=== PATIENT | female | born 1990 | race American Indian/Alaskan Native ===

== ENCOUNTER 2019-01-02 06:42 | Outpatient (CLI) | payer MEDICAID ==
[2019-01-02] MEDS ORDERED: LACTATED RINGERS 500 ML IV ONE (07:12)
[2019-01-02 10:22] VITALS: BP 124/65
[2019-01-02 11:13] LABS: Bacteria,Urine 2+ /HPF (Negative); Bilirubin,Urine NEG (Negative); Blood,Urine NEG (Negative); Color,Urine Yellow (Yellow); Mucus,Urine 2+ /HPF; Protein,Urine <15 mg/dL mg/dL (Negative); Urobilinogen,Urine < 2.0 mg/dL (<2.0)
== END 2019-01-02 10:51 | disposition home or self-care (01) ==
LOC: TRG 06:42
PROVIDERS: ATTEND Obstetrics & Gynecology
DX: O47.02 False labor before 37 completed weeks of gestation, second trimester (principal); Z3A.20 20 weeks gestation of pregnancy
CPT/HCPCS: 59025; 81001